=== PATIENT | female | born 1960 | race Caucasian/White ===

== ENCOUNTER 2017-04-02 22:33 | Emergency (ER) | payer OTHER ==
[~2017-04-02] VITALS: Ht 154.9 cm; Wt 85.0 kg
[2017-04-02 22:40] VITALS: Ht 154.9 cm; Wt 85.0 kg
--- NOTE | 2017-04-02 23:22 | ERD ---
ER Documentation Chief Complaint Date/Time DATE: 04/02/17 TIME: 23:19 Chief Complaint c/o right foot and ankle pain. States twisted extremity. HPI Patient is a 57-year-old female with past medical history of hypertension who presents to the emergency department with right foot and ankle pain after twisting her ankle earlier today. Patient states she is walking her house when she accidentally inverted her ankle. Patient denies falling. Patient denies any pain in her knee or lower leg. She is unable to bear weight to the affected extremity. Patient denies hitting her head or back pain. Denies any chest pain, shortness breath, nausea, vomiting, LOC. Patient denies any previous injuries to the affected extremity. ROS All systems reviewed and are negative except as per history of present illness. Medications Home Meds Active Scripts Ibuprofen* (Motrin*) 400 Mg Tab, 400 MG PO Q6, #30 TAB Prov:LIANNE CONNELL PA-C 04/03/17 PMhx/Soc History of Surgery: Yes (HYSTERECTOMY, BREAST CYST REMOVAL) Anesthesia Reaction: No Hx Neurological Disorder: No Hx Respiratory Disorders: No Hx Cardiac Disorders: Yes (HTN) Hx Psychiatric Problems: No Hx Miscellaneous Medical Probl: No Hx Alcohol Use: No Hx Substance Use: No Hx Tobacco Use: No Smoking Status: Never smoker FmHx Family History: No diabetes Physical Exam Vitals Vital Signs Date Time Temp Pulse Resp B/P Pulse Ox O2 Delivery O2 Flow Rate FiO2 04/02/17 22:40 98.3 71 18 164/76 98 Physical Exam GENERAL: Well-developed, well-nourished female. Appears in no acute distress. HEAD: Normocephalic, atraumatic. EYES: Pupils are equally reactive bilaterally. EOMs grossly intact. No conjunctival erythema. ENT: Moist mucous membranes. No uvula deviation. No kissing tonsils. NECK: Supple. No meningismus. Normal range of motion of the neck. LUNG: Clear to auscultation bilaterally. No rhonchi, wheezing, rales or coarse breath sounds. HEART: Regular rate and rhythm. No murmurs, rubs or gallops. BACK: No midline tenderness. EXTREMITIES: Equal pulses bilaterally. No peripheral clubbing, cyanosis or edema. No unilateral leg swelling. NEUROLOGIC: Alert and oriented. Moving all four extremities without any difficulty. Normal speech. Steady gait. SKIN: Normal color. Warm and dry. No rashes or lesions. RIGHT FOOT/ANKLE: No obvious deformity, erythema, ecchymosis. Skin intact. + Swelling to lateral foot. Full ROM of knee and toes. Decreased range of motion of ankle secondary to swelling and pain. Patient of the tibia-fibula. Tender to palpation of the lateral ankle, lateral foot, fifth metatarsal. Sensation intact to light touch. Neurovascularly intact. (Able to plantarflex, dorsiflex, abimael foot, invert foot, raise big toe.) 2+ DP and DT pulses. Results 24 hrs Current Medications Medications (Trade) Dose Ordered Sig/Leon Route PRN Reason Start Time Stop Time Status Last Admin Dose Admin Ketorolac Tromethamine (Toradol) 30 mg ONCE STAT IM 04/02/17 23:43 04/02/17 23:44 DC 04/02/17 23:51 Procedures/MDM ED COURSE: The patient was stable throughout ED course. I kept the patient and/or family informed of laboratory and diagnostic imaging results throughout the ED course. DIAGNOSTIC IMAGING: Read by radiologist. DIAGNOSTIC IMAGING REPORT Patient: LUCINDA GANDARA : 1960 Age: 57 Sex: F MR #: [id number] DOS: 04/02/17 2302 Ordering MD: LIANNE CONNELL PA-C Location: [facility] Room/Bed: PROCEDURE: X-ray right ankle CLINICAL INDICATION: Twisting injury right ankle, with reference marker over the dorsal and lateral aspects of the midfoot. TECHNIQUE: 3 views right ankle COMPARISON: None FINDINGS: No acute fracture or dislocation. Plantar and posterior dorsal calcaneal enthesophytes. Soft tissues otherwise unremarkable. IMPRESSION: No acute fracture. RPTAT: [facility] Physician Josefa Date Time Electronically viewed and signed by Physician Josefa on 04/02/2017 23:41 RS/ CC: LIANNE CONNELL PA-C DIAGNOSTIC IMAGING REPORT Patient: LUCINDA GANDARA : 1960 Age: 57 Sex: F MR #: [id number] [facility] #: [id number] DOS: 04/02/17 2302 Ordering MD: LIANNE CONNELL PA-C Location: [facility] Room/Bed: PROCEDURE: X-ray right foot CLINICAL INDICATION: Twisting injury right foot, with reference marker at the dorsal midfoot at the lateral aspect of the forefoot. TECHNIQUE: 3 views right foot COMPARISON: None FINDINGS: No acute fracture or dislocation. Soft tissues unremarkable. IMPRESSION: No acute fracture. RPTAT: [facility] Physician Josefa Date Time Electronically viewed and signed by Physician Josefa on 04/02/2017 23:42 RS/ CC: LIANNE CONNELL PA-C PROCEDURES: SPLINT APPLICATION: The patient was verbally consented at bedside prior to splint application. Patient was explained the risks, benefits and alternatives to this procedure. The patient was neurovascularly intact prior to and status post application of the splint. The patient tolerated the procedure well with no complications. Splint type: SANDRO wrap Extremity: RLE Indication: foot injury MEDICATIONS GIVEN: Toradol IM Patient tolerated medication well with no adverse reactions. Patient reported improvement in pain. MEDICAL DECISION MAKING: This is a 57-year-old female who presents with right ankle and foot pain after twist injury. Patient denied any head injury, back pain, nausea, vomiting or loss consciousness.. Vital signs were reviewed. Patient was afebrile. Ankle xrays showed No acute fracture or dislocation. Plantar and posterior dorsal calcaneal enthesophytes. Soft tissues otherwise unremarkable. Xray imaging of foot was negative. Given these findings, the patient's presentation is most consistent with foot sprain and ankle sprain. I have a much lower clinical concern for ankle dislocation, tibia fracture, fibula fracture, ankle fracture, tarsal bone fracture, metatarsal fracture, phalangeal fracture, lisfranc injury , gout, septic joint, reactive arthritis, psoriatic arthritis, DVT, compartment syndrome, plantar fasciitis, diabetic neuropathy or pes planus. At this time, unable to rule out any tendon and ligament injuries. PRESCRIPTIONS: Ibuprofen DISCHARGE: At this time, patient is stable for discharge and outpatient management. Patient given a copy of all imaging studies obtained today. RICE therapy and ROM exercises were advised to avoid stiffness. I have instructed the patient to follow-up with his/her primary care physician in 1-2 days. I have discussed with the patient the possibility of needing to see an orthopedic assistant for further workup and imaging if the pain persists. I have instructed the patient to promptly return to the ER for any new or worsening symptoms including increased pain, swelling, redness, warmth or fever. The patient and/or family expressed understanding of and agreement with this plan. All questions were answered. Home care instructions were provided. Patient's blood pressure was elevated (>120/80) but appears stable without evidence of hypertensive emergency, hypertensive urgency or end-organ failure. I had discussion with the patient about the risks of hypertension. I have advised the patient to follow up with his/her primary care physician for outpatient monitoring and treatment for hypertension in 2-3 days. I have instructed the patient to return to the ER for any new or worsening symptoms including chest pain, shortness of breath, headache, blurred vision, confusion, nausea, vomiting or LOC. Departure Diagnosis: Primary Impression: Injury of foot Encounter type: initial encounter Laterality: right Qualified Code: S99.921A - Injury of foot, right, initial encounter Condition: Stable Referrals: [facility] YOU HAVE RECEIVED A MEDICAL SCREENING EXAM AND THE RESULTS INDICATE THAT YOU DO NOT HAVE A CONDITION THAT REQUIRES URGENT TREATMENT IN THE EMERGENCY DEPARTMENT. FURTHER EVALUATION AND TREATMENT OF YOUR CONDITION CAN WAIT UNTIL YOU ARE SEEN IN YOUR DOCTORS OFFICE WITHIN THE NEXT 1-2 DAYS. IT IS YOUR RESPONSIBILITY TO MAKE AN APPOINTMENT FOR FOLOW-UP CARE. IF YOU HAVE A PRIMARY DOCTOR --you should call your primary doctor and schedule an appointment IF YOU DO NOT HAVE A PRIMARY DOCTOR YOU CAN CALL OUR PHYSICIAN REFERRAL HOTLINE AT IF YOU CAN NOT AFFORD TO SEE A PHYSICIAN YOU CAN CHOSE FROM THE FOLLOWING [facility] [address] [facility] [address] [facility] [facility] [address] [facility] [address] [facility] [address] [facility] [facility] [address] [facility] [facility] YOU HAVE RECEIVED A MEDICAL SCREENING EXAM AND THE RESULTS INDICATE THAT YOU DO NOT HAVE A CONDITION THAT REQUIRES URGENT TREATMENT IN THE EMERGENCY DEPARTMENT. FURTHER EVALUATION AND TREATMENT OF YOUR CONDITION CAN WAIT UNTIL YOU ARE SEEN IN YOUR DOCTORS OFFICE WITHIN THE NEXT 1-2 DAYS. IT IS YOUR RESPONSIBILITY TO MAKE AN APPOINTMENT FOR FOLOW-UP CARE. IF YOU HAVE A PRIMARY DOCTOR --you should call your primary doctor and schedule and appointment IF YOU DO NOT HAVE A PRIMARY DOCTOR YOU CAN CALL OUR PHYSICIAN REFERRAL HOTLINE AT . IF YOU CAN NOT AFFORD TO SEE A PHYSICIAN YOU CAN CHOSE FROM THE FOLLOWING [facility] INSTITUTIONS: [facility] [address] [place] [address] [facility] [address] [place] [address] [facility] [address] [place] [address] [facility] Hours: Mon-Fri 9:00 AM - 5:00 PM Additional Instructions: Call your primary care doctor TOMORROW for an appointment during the next 1-2 days.See the doctor sooner or return here if your condition worsens before your appointment time. Unable rule out any ligament or tendon injuries at this time. Patient advised to follow-up with primary care physician for referral to orthopedic assistant and/or MRI pain persist. LIANNE CONNELL PA-C Apr 02, 2017 23:22
--- NOTE | 2017-04-02 23:41 | RADRPT ---
PROCEDURE: X-ray right ankle CLINICAL INDICATION: Twisting injury right ankle, with reference marker over the dorsal and latera l aspects of the midfoot. TECHNIQUE: 3 views right ankle COMPARISON: None FINDINGS: No acute fracture or dislocation. Plantar and posterior dorsal calcaneal enthesophytes. Soft tissue s otherwise unremarkable. IMPRESSION: No acute fracture. RPTAT: [facility] Physician Josefa Date Time Electronically viewed and signed by Dick Ashford Physician on 04/02/2017 23:41 RS/
[2017-04-02] MEDS ORDERED: KETOROLAC 30 MG INJ IM STA (23:43)
--- NOTE | 2017-04-02 23:43 | RADRPT ---
PROCEDURE: X-ray right foot CLINICAL INDICATION: Twisting injury right foot, with reference marker at the dorsal midfoot at th e lateral aspect of the forefoot. TECHNIQUE: 3 views right foot COMPARISON: None FINDINGS: No acute fracture or dislocation. Soft tissues unremarkable. IMPRESSION: No acute fracture. RPTAT: [facility] Physician Josefa Date Time Electronically viewed and signed by Dick Ashford Physician on 04/02/2017 23:42 RS/
[2017-04-03] MEDS ORDERED: IBUP400T22 PO (00:14)
== END 2017-04-03 01:21 | disposition home or self-care (01) ==
LOC: FTE 22:33
DX: S99.921A Unspecified injury of right foot, initial encounter (principal); I10 Essential (primary) hypertension; X50.9XXA Other and unspecified overexertion or strenuous movements or postures, initial encounter; Y92.009 Unspecified place in unspecified non-institutional (private) residence as the place of occurrence of the external cause
CPT/HCPCS: 73610; 73630; 96372; J1885; Z7502